=== PATIENT | male | born 1985 ===

== ENCOUNTER 2018-04-10 23:45 | Emergency (ER) | payer MEDICAID, OTHER ==
[2018-04-10 23:45] VITALS: BMI 36.0
[2018-04-11 00:01] VITALS: BP 124/84; PULSE 107; RESP 20; TEMP 97.8; O2SAT 95
[2018-04-11] MEDS ORDERED: levETIRAcetam 100 mg/ml (5ml) Oral Syringe PO STA (00:03)
--- NOTE | 2018-04-11 00:07 | C.PDOC ---
History Of Present Illness 32 year old male presents to the ER requesting a dose of his keppra. Patient states he took his dose this morning but could not find it this evening. Denies any complaints at this time. Time Seen by Provider: 04/10/18 23:57 Chief Complaint (Nursing): Med Refill History Per: Patient History/Exam Limitations: no limitations Onset/Duration Of Symptoms: Hrs Current Symptoms Are (Timing): Still Present Recent travel outside of the [place]: No Past Medical History Reviewed: Historical Data, Nursing Documentation, Vital Signs Vital Signs: Last Vital Signs Temp 97.8 F 04/10/18 23:54 Pulse 107 H 04/10/18 23:54 Resp 20 04/10/18 23:54 BP 124/84 04/10/18 23:54 Pulse Ox 95 04/10/18 23:54 - Medical History PMH: Seizures Family History: States: Unknown Family Hx - Social History Hx Alcohol Use: Yes Hx Substance Use: No - Immunization History Hx Tetanus Toxoid Vaccination: Yes Hx Influenza Vaccination: No Hx Pneumococcal Vaccination: No Review Of Systems Constitutional: Negative for: Fever, Chills Cardiovascular: Negative for: Chest Pain, Palpitations Respiratory: Negative for: Cough, Shortness of Breath Gastrointestinal: Negative for: Nausea, Vomiting Neurological: Negative for: Weakness, Numbness Physical Exam - Physical Exam Appears: Non-toxic Skin: Normal Color, Warm, Dry Head: Atraumatic, Normacephalic Oral Mucosa: Moist Chest: Symmetrical, No Tenderness Cardiovascular: Rhythm Regular Respiratory: Normal Breath Sounds, No Rales, No Rhonchi, No Wheezing Gastrointestinal/Abdominal: Soft, No Tenderness Neurological/Psych: Oriented x3, Normal Speech ED Course And Treatment O2 Sat by Pulse Oximetry: 95 (Room air) Pulse Ox Interpretation: Normal Medical Decision Making Medical Decision Making: Keppra administered. Patient is resting comfortably in the ER in no acute distress, vitals are stable, will discharge home with instructions to follow up with PMD. Disposition Counseled Patient/Family Regarding: Diagnosis, Need For Followup - Disposition Referrals: Isabel Theodore MD [Staff Provider] - Disposition: HOME/ ROUTINE Disposition Time: 00:07 Condition: GOOD Forms: [facility] (Arabic), General Discharge Instructions - POA Present On Arrival: None - Clinical Impression Clinical Impression: Medicine refill - PA / [employer] / Resident Statement / has reviewed & agrees with the documentation as recorded. - Scribe Statement The provider has reviewed the documentation as recorded by the Scribe John Pizarro All medical record entries made by the Zina were at my direction and personally dictated by me. I have reviewed the chart and agree that the record accurately reflects my personal performance of the history, physical exam, medical decision making, and the department course for this patient. I have also personally directed, reviewed, and agree with the discharge instructions and disposition.
== END 2018-04-11 00:24 | disposition home or self-care (01) ==
LOC: C.ER 23:45
DX: Z76.0 Encounter for issue of repeat prescription (principal); G40.909 Epilepsy, unspecified, not intractable, without status epilepticus